=== PATIENT | female | born 1965 ===

== ENCOUNTER 2024-02-22 13:50 | Emergency (ER) | payer BC | END 2024-02-22 14:17 | disposition home or self-care (01) | LOC: DL.ED 13:50 | DX: J40 Bronchitis, not specified as acute or chronic (principal); Z88.0 Allergy status to penicillin; Z88.8 Allergy status to other drugs, medicaments and biological substances; Z86.16 Personal history of COVID-19; Z87.891 Personal history of nicotine dependence | CPT/HCPCS: 99283 ==